=== PATIENT | female | born 1940 | race Caucasian/White ===

== ENCOUNTER 2016-06-05 18:19 | Emergency (ER) | payer SELFPAY ==
[2016-06-05 18:33] VITALS: BMI 26.1
[2016-06-05 18:38] VITALS: O2SAT 99
[2016-06-05 20:27] LABS: ADD MANUAL DIFF? NO
[2016-06-05 20:32] LABS: URINE APPEARANCE SLIGHT-CLOUDY (CLEAR); URINE BILIRUBIN NEGATIVE (NEGATIVE); URINE BLOOD LARGE (NEGATIVE); URINE COLOR YELLOW (YELLOW); URINE GLUCOSE (UA) NEGATIVE (NEGATIVE); URINE KETONE NEGATIVE (NEGATIVE); URINE LEUKOCYTE ESTERASE SMALL Leu/uL (NEGATIVE); URINE PROTEIN 30 mg/dL (<30 mg/dL); URINE UROBILINOGEN 0.2 E.U./dL (<1 E.U./dL)
[2016-06-05 20:32] LABS: BASO # 0.01 K/mm3 (0.0-2.0); BASO % 0.2 % (0.0-3.0); EOS # 0.1 (0.0-0.7); EOS % 1.5 % (1.5-5.0); GRAN # 3.13 (1.4-6.5); GRAN % 66.3 % (50.0-68.0); HEMATOCRIT 36.5 % (36.0-48.0); LYMPH # 1.3 (1.2-3.4); LYMPH % 26.9 % (22.0-35.0); MEAN CELL VOLUME 94.6 fL (80.0-105.0); MEAN CORPUSCULAR HEMOGLOBIN 31.3 pg (25.0-35.0); MEAN CORPUSCULAR HGB CONC 33.2 g/dl (31.0-37.0); MEAN PLATELET VOLUME 14.4 fl (7.0-11.0); MONO # 0.2 (0.1-0.6); MONO % 5.1 % (1.0-6.0); PLATELET COUNT 154 10^3/uL (120.0-450.0); RED CELL DISTRIBUTION WIDTH 13.7 % (11.5-14.5); WHITE BLOOD COUNT 4.7 10^3/ul (4.5-11.0)
[2016-06-05 20:36] LABS: URINE BACTERIA MOD (NEG); URINE EPITHELIAL CELLS 0 - 2 /hpf (0-5); URINE RBC TNTC /hpf (0-2); URINE WBC TNTC /hpf (0-6)
[2016-06-05 20:41] LABS: ALB/GLOB RATIO 1.2 (1.1-1.8); ALKALINE PHOSPHATASE 55 U/L (38-133); ALT/SGPT 26 U/L (7-56); AST/SGOT 35 U/L (15-39); BILIRUBIN,TOTAL 0.6 mg/dL (0.2-1.3); BLOOD UREA NITROGEN 13 mg/dL (7-21); CALCIUM 9.6 mg/dL (8.4-10.5); CARBON DIOXIDE 30 mmol/L (21-33); CHLORIDE 102 mmol/L (98-107); GFR AFRICAN-AMERICAN > 60; GLUCOSE,RANDOM 94 mg/dL (70-110); INR 3.37 (0.93-1.08); POTASSIUM 4.3 mmol/L (3.6-5.0); SODIUM 141 mmol/L (132-148); TOTAL PROTEIN 7.8 g/dL (5.8-8.3)
--- NOTE | 2016-06-05 21:02 | ED PDOC ---
Arrival/HPI - General Chief Complaint: Female Genitourinary Time Seen by Provider: 06/05/16 18:55 Historian: Patient - History of Present Illness Narrative History of Present Illness (Text): 06/05/16 20:58 Wilma Lamb is a 75 year old female, with a history of DVT, hypercholesterolemia, and hypertension, presents to the emergency department complaining of suprapublic pain associated with hematuria since yesterday. Denies any fever, chills, headache, chest pain, SOB, abdominal pain, nausea, vomiting, diarrhea, flank pain, or any other complaints at this time. Time/Duration: Other (yesterday ) Symptom Onset: Gradual Symptom Course: Unchanged Severity Level: Mild Activities at Onset: Light Context: Home Past Medical History - Provider Review Nursing Documentation Reviewed: Yes - Cardiac Hx Hypertension: Yes Other/Comment: "heart problem" patient and family unsure. - Psychiatric Hx Substance Use: No - Surgical History Other/Comment: "breast surgery" Family/Social History - Physician Review Nursing Documentation Reviewed: Yes Family/Social History: No Known Family HX Smoking Status: Never Smoked Hx Alcohol Use: No Hx Substance Use: No Allergies/Home Meds Allergies/Adverse Reactions: Allergies No Known Allergies Allergy (Verified 06/05/16 18:33) Home Medications: Home Meds Medication Instructions Recorded Confirmed Lisinopril [Zestril] 5 mg PO DAILY 06/05/16 06/05/16 Rosuvastatin Calcium [Crestor] 10 mg PO DAILY 06/05/16 06/05/16 Warfarin Sodium [Jantoven] 5 mg PO DAILY 06/05/16 06/05/16 Review of Systems - Physician Review All systems were reviewed & negative as marked: Yes - Review of Systems Constitutional: Normal. absent: Fatigue, Fevers Respiratory: Normal. absent: SOB, Cough Cardiovascular: Normal. absent: Chest Pain Gastrointestinal: Abdominal Pain (suprapubic pain ). absent: Diarrhea, Nausea, Vomiting Genitourinary Female: Hematuria. absent: Vaginal Discharge Neurological: Normal. absent: Headache, Dizziness Psychiatric: Normal Physical Exam Vital Signs Reviewed: Yes Vital Signs Temp Pulse Resp BP Pulse Ox 06/05/16 20:34 98.5 F 65 18 161/72 H 99 06/05/16 18:37 98.2 F 68 17 164/83 H 99 Temperature: Afebrile Blood Pressure: Hypertensive Pulse: Regular Respiratory Rate: Normal Appearance: Positive for: Well-Appearing, Non-Toxic, Comfortable Pain Distress: None Mental Status: Positive for: Alert and Oriented X 3 - Systems Exam Head: Present: Atraumatic, Normocephalic Pupils: Present: PERRL Extroacular Muscles: Present: EOMI Conjunctiva: Present: Normal Respiratory/Chest: Present: Clear to Auscultation, Good Air Exchange. No: Respiratory Distress, Accessory Muscle Use Cardiovascular: Present: Regular Rate and Rhythm, Normal S1, S2. No: Murmurs Abdomen: Present: Normal Bowel Sounds. No: Tenderness, Distention, Peritoneal Signs, Rebound, Guarding Back: Present: Normal Inspection. No: CVA Tenderness Upper Extremity: Present: Normal Inspection. No: Cyanosis, Edema Lower Extremity: Present: Normal Inspection. No: Edema Neurological: Present: GCS=15, CN II-XII Intact, Speech Normal, Motor Func Grossly Intact, Normal Sensory Function Skin: Present: Warm, Dry, Normal Color. No: Rashes Psychiatric: Present: Alert, Oriented x 3, Normal Insight, Normal Concentration Medical Decision Making ED Course and Treatment: 06/05/16 21:04 Impression: A 75 year old female who presents to the emergency department complaining of suprapubic pain associated with hematuria. Plan: -- Labs -- Keflex -- Urine Culture -- Urinalysis -- Reassess and disposition Progress Notes: 06/05/16 21:06 On re-evaluation, patient feels better and is in no acute distress. I have discussed the results and plan with the patient, who expresses understanding. Patient in agreement with plan to be discharged home. Patient is stable for discharge. Patient was instructed to follow up with physician or return if symptoms worsen or new concerning symptoms arise. - Lab Interpretations Lab Results: 06/05/16 20:21 06/05/16 20:21 Lab Results 06/05/16 20:25: Urine Color Yellow, Urine Appearance Slight-cloudy, Urine pH 6.0 , Ur Specific [place] 1.020, Urine Protein 30 H, Urine Glucose (UA) Negative, Urine Ketones Negative, Urine Blood Large H, Urine Nitrate Negative, Urine Bilirubin Negative, Urine Urobilinogen 0.2, Ur Leukocyte Esterase Small H, Urine RBC Tntc, Urine WBC Tntc, Ur Epithelial Cells 0 - 2, Urine Bacteria Mod 06/05/16 20:21: WBC 4.7, RBC 3.86, Hgb 12.1, Hct 36.5, MCV 94.6, MCH 31.3, MCHC 33.2, RDW 13.7, Plt Count 154, MPV 14.4 H, Gran % 66.3, Lymph % (Auto) 26.9, [place] % (Auto) 5.1, Eos % (Auto) 1.5, Baso % (Auto) 0.2, Gran # 3.13, Lymph # 1.3 , [place] # 0.2, Eos # 0.1, Baso # 0.01, PT 36.4 H*, INR 3.37 H, Sodium 141, Potassium 4.3, Chloride 102, Carbon Dioxide 30, Anion Gap 13, BUN 13, Creatinine 0.7, Est GFR ( Amer) > 60, Est GFR (Non-Af Amer) > 60, Random Glucose 94, Calcium 9.6, Total Bilirubin 0.6, AST 35, ALT 26, Alkaline Phosphatase 55, Total Protein 7.8, Albumin 4.3, Globulin 3.5, Albumin/Globulin Ratio 1.2 - Medication Orders Current Medication Orders: Discontinued Medications Cephalexin Monohydrate (Keflex) 500 mg PO STAT STA PRN Reason: Protocol Stop: 06/05/16 20:50 Last Admin: 06/05/16 21:17 Dose: 500 MG - Scribe Statement The provider has reviewed the documentation as recorded by the Omkar Lee Provider Attestation: All medical record entries made by the Omkar were at my direction and personally dictated by me. I have reviewed the chart and agree that the record accurately reflects my personal performance of the history, physical exam, medical decision making, and the department course for this patient. I have also personally directed, reviewed, and agree with the discharge instructions and disposition. Disposition/Present on Arrival - Present on Arrival Any Indicators Present on Arrival: No History of DVT/PE: No History of Uncontrolled Diabetes: No Urinary Catheter: No History of Decub. Ulcer: No History Surgical Site Infection Following: None - Disposition Have Diagnosis and Disposition been Completed?: Yes Diagnosis: Urinary tract infection Disposition: HOME/ ROUTINE Disposition Time: 21:05 Condition: GOOD Discharge Instructions (ExitCare): Urinary Tract Infection in Women (ED) Additional Instructions: hold Coumadin in am restart on Prescriptions: levoFLOXacin [Levaquin] 500 mg PO DAILY #10 tab Referrals: PCP,NO [Primary Care Provider] - Follow up with primary
[2016-06-05 21:35] VITALS: BP 161/72; PULSE 65; RESP 18; TEMP 98.5
== END 2016-06-05 21:35 | disposition home or self-care (01) ==
LOC: ED 18:19
DX: N39.0 Urinary tract infection, site not specified (principal)